=== PATIENT | male | born 1990 | race Caucasian/White ===

== ENCOUNTER 2016-10-25 00:59 | Emergency (ER) | payer OTHER ==
[~2016-10-25] VITALS: Ht 177.8 cm; Wt 158.8 kg
[~2016-10-25 00:59] MED LIST: HYDR-971 PO
[2016-10-25] MEDS ORDERED: IV NORMAL SALINE 1000ML BAG 1,000 ML IV SCH (01:30)
--- NOTE | 2016-10-25 01:37 | ED.ADGEN ---
Past Medical History Past Medical History: Asthma Past Surgical History: No Surgical History Alcohol Use: Occasionally Drug Use: None Adult General Chief Complaint Chief Complaint: ABDOMINAL PAIN HPI HPI Patient is a 26 year old man, history of asthma, obesity, who presents to the emergency department with a complaint of left upper abdominal pain/left lower chest pain, that he states occurred approximate hour prior to arrival. Patient states she's been experiencing cold flulike symptoms for the past several days, completed with rhinorrhea, and cough. States he has been taking cough syrup every 4 hours, along with Mucinex, states his cough was better tonight, but he woke up while he was stressed out along some pillows in bed, and experienced 3 "spasm" type feelings, along his left lower rib/upper abdominal region, each lasted for a few seconds, states he took deep breaths, and the symptoms resolved. Patient has not taken any medications that time, he states that he went online and check that his symptoms was concerned he might be having a heart attack. He denies any upper chest pain, any shortness of breath, any nausea or vomiting, states that he was feeling hot at home, noted to have a temperature of 99.5 in the ED. Patient also noted a mildly tachycardic, heart rate in the 90s to low 100s, blood pressure is elevated, 160s over 100, he states he has history of "borderline hypertension". It experiencing no symptoms at this time. No family history of sudden cardiac or cardiac issues or CVA in young persons. No recent travel or surgery, no history of DVT or PE. Denies any drugs alcohol or cigarettes. He is not taken any other medications aside from the cough syrup that he took around 12:00 at night. Review of Systems Review of Systems Constitutional: Denies fever or chills. [] Eyes: Denies change in visual acuity. [] HENT: Denies nasal congestion or sore throat. [] Respiratory: Denies cough or shortness of breath. [] Cardiovascular: Left lower chest/upper abdominal spasm. GI: Denies abdominal pain, nausea, vomiting, bloody stools or diarrhea. [] : Denies dysuria. [] Musculoskeletal: Denies back pain or joint pain. [] Integument: Denies rash. [] Neurologic: Denies headache, focal weakness or sensory changes. [] Endocrine: Denies polyuria or polydipsia. [] Lymphatic: Denies swollen glands. [] Psychiatric: Denies depression or anxiety. [] Current Medications Current Medications Current Medications Medications (Trade) Dose Ordered Sig/Elissa Start Time Stop Time Status Last Admin Dose Admin Naproxen (Naprosyn) 250 mg 1X ONCE 10/25/16 01:45 10/25/16 01:46 DC 10/25/16 01:48 250 MG Sodium Chloride (Iv Sodium Chloride 0.9% 1000ml Bag) 1,000 ml @ 1,000 mls/hr Q1H 10/25/16 01:30 10/25/16 02:29 DC 10/25/16 01:49 1,000 MLS/HR Allergies Allergies Allergies Coded Allergies Type Severity Reaction Last Updated Verified Sulfa (Sulfonamide Antibiotics) Allergy Unknown 10/25/16 Yes cefaclor Allergy Unknown 10/25/16 Yes Physical Exam Physical Exam Constitutional: Well developed, obese, slightly flushed, no acute distress, non- toxic appearance. [] HENT: Normocephalic, atraumatic, bilateral external ears normal, oropharynx moist, no oral exudates, nose normal. [] Eyes: PERRLA, EOMI, conjunctiva normal, no discharge. [] Neck: Normal range of motion, no tenderness, supple, no stridor. [] Cardiovascular:Heart rate regular rhythm, no murmur, S1, S2, no rubs or gallops. No chest wall tenderness or crepitus. Patient points location below his left anterior chest region as the area of discomfort, unable to reproduce symptoms palpation at this time. [] Lungs & Thorax: Bilateral breath sounds clear to auscultation, no wheezing, rhonchi, rales. No chest wall crepitus or tenderness. [] Abdomen: Bowel sounds normal, soft, obese, no tenderness, no masses, no pulsatile masses. [] Skin: Warm, dry, no erythema, no rash. [] Back: No tenderness, no CVA tenderness. [] Extremities: No tenderness, no cyanosis, no clubbing, ROM intact, no edema. Negative Homans sign.] Neurologic: Alert and oriented X 3, normal motor function, normal sensory function, no focal deficits noted. [] Psychologic: Affect normal, judgement normal, mood normal. [] Current Patient Data Vital Signs Vital Signs Date Time Temp Pulse Resp B/P Pulse Ox O2 Delivery O2 Flow Rate FiO2 10/25/16 03:00 98.1 83 20 127/64 97 Room Air 98.1 Lab Values Laboratory Tests Test 10/25/16 01:33 Influenza Type A Antigen Negative (NEGATIVE) Influenza Type B Antigen Negative (NEGATIVE) EKG EKG EC: Sinus rhythm heart rate 99 beats minute, upright axis, QTC of 413, [place] 140, QRS of 98, no ST elevations or depressions identified, no evidence of acute ST abnormalities. No prior for comparison. As interpreted by me. Radiology/Procedures Radiology/Procedures Chest x-ray: Two-view: Normal cardiopulmonary silhouette, no infiltrates, no pneumothorax, no effusions, no soft tissue or bony abnormalities identified. As interpreted by me. [] Course & Med Decision Making Course & Med Decision Making Pertinent Labs and Imaging studies reviewed. (See chart for details) Patient well-appearing, asymptomatic in the ED, his description of symptoms sounds much more like a muscular spasm, which is occurring actually below the chest region primarily, then of any involvement of the cardiac pulmonary system. ECG is unremarkable, patient was mildly tachycardic on arrival, noted to have a temperature of 99.5 orally, along with nasal congestion, and cough, examination and history is consistent with a viral respiratory infection. Chest x-rays unremarkable, oxygen saturation is 97-100% on room air, respirations unlabored, patient received naproxen in the ED, bloody fluids, repeat heart rate , examination is improved, he denies any new or concerning symptoms. No concerning history identified. I did discuss with patient the fact that he may be overdoing the dextromethorphan containing medications, which may be causing some tachycardia as well, discussed use of Tessalon Perles which she has used previously with good effect, patient given a prescription from the ED. Patient given clear and detailed return instructions, instructed also to establish follow up with a primary care provider, which he states he will be able to do, for recheck of his blood pressure, initially was high in the ED, improved, but will require additional follow-up. Patient voiced understanding and agreement, discharged home in stable condition with his family. Dragon Disclaimer Dragon Disclaimer This electronic medical record was generated, in whole or in part, using a voice recognition dictation system. Departure Impression: Primary Impression: Viral respiratory illness Disposition: HOME, SELF-CARE Condition: IMPROVED Scripts Benzonatate (Tessalon Perle)100 Mg Capsule1 Cap PO TID PRN COUGH #21 CAP Prov:DAVID LIMA DO 10/25/16 Naproxen 250 Mg Pammhx451 Mg PO BID PRN PAIN #10 Prov:DAVID LIMA DO 10/25/16 DAVID LIMA DO Oct 25, 2016 01:37
[2016-10-25] MEDS ORDERED: NAPROXEN 250 MG TABLET PO ONE (01:45)
[2016-10-25 01:59] LABS: OBC FLU VALID
[2016-10-25 03:00] VITALS: BP 127/64
[2016-10-25] MEDS ORDERED: BENZ100C PO (03:04)
[2016-10-25] MEDS ORDERED: NAPR250T2 PO (03:04)
--- NOTE | 2016-10-25 06:36 | EKG ---
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
--- NOTE | 2016-10-25 07:26 | RAD ---
Indication: Left chest pain. Time of exam 0134 hours. FINDINGS: The heart size is normal. The lungs are clear. No pleural effusion or pneumothorax is identified. The pulmonary vascularity is normal. IMPRESSION: No acute abnormality detected.
== END 2016-10-25 03:26 | disposition home or self-care (01) ==
LOC: ER 00:59
DX: J98.9 Respiratory disorder, unspecified (principal); B34.9 Viral infection, unspecified; R10.12 Left upper quadrant pain; J45.909 Unspecified asthma, uncomplicated; E66.9 Obesity, unspecified; Z88.2 Allergy status to sulfonamides; Z88.8 Allergy status to other drugs, medicaments and biological substances
CPT/HCPCS: 71020; 87804; 93005; 96360; 99285; J7030

== ENCOUNTER 2017-07-04 16:37 | Emergency (ER) | payer OTHER ==
[~2017-07-04] VITALS: Ht 236.2 cm; Wt 167.8 kg
[~2017-07-04 16:37] MED LIST changes: +BENZ100C PO; +NAPR250T6 PO
[2017-07-04 17:46] LABS: BASO # 0.1 x10^3/uL (0.0-0.2); BASO % 1 % (0-3); EOS % 3 % (0-3); HEMATOCRIT 42.7 % (39.0-53.0); HEMOGLOBIN 14.4 g/dL (13.0-17.5); LYMPH # 2.2 x10^3/uL (1.0-4.8); LYMPH % 26 % (24-48); MEAN CORPUSCULAR HEMOGLOBIN 29 pg (25-35); MEAN CORPUSCULAR HGB CONC 34 g/dL (31-37); MEAN CORPUSCULAR VOLUME 85 fL (79-100); MONO % 9 % (0-9); NEUT % 62 % (31-73); PLATELET COUNT 237 x10^3/uL (140-400); RED BLOOD COUNT 5.03 x10^6/uL (4.30-5.70); RED CELL DISTRIBUTION WIDTH 13.5 % (11.5-14.5); WHITE BLOOD COUNT 8.5 x10^3/uL (4.0-11.0)
[2017-07-04 18:05] LABS: ALBUMIN 3.7 g/dL (3.4-5.0); ALBUMIN/GLOBULIN RATIO 0.9 (1.0-1.7); CALCIUM 9.4 mg/dL (8.5-10.1); CREATININE 0.9 mg/dL (0.7-1.3); GFR 99.8; POTASSIUM 4.1 mmol/L (3.5-5.1); TOTAL BILIRUBIN 0.5 mg/dL (0.2-1.0); TOTAL PROTEIN 7.9 g/dL (6.4-8.2)
[2017-07-04 18:07] LABS: BILIRUBIN,URINE NEGATIVE (NEG); GLUCOSE,URINE NEGATIVE (NEG); NITRITE,URINE NEGATIVE (NEG); PROTEIN,URINE NEGATIVE (NEG-TRACE); UROBILINOGEN,URINE 0.2 mg/dL (0.2 mg/dL)
[2017-07-04 18:29] LABS: BACTERIA,URINE 0 /HPF (0-FEW); RBC,URINE RARE /HPF (0-2); SQUAMOUS EPITHELIAL CELL,UR OCC /LPF; WBC,URINE OCC /HPF (0-4)
--- NOTE | 2017-07-04 18:34 | EKG ---
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
[2017-07-04 19:12] LABS: BARBITURATES NEG (NEG); BENZODIAZEPINES NEG (NEG); CANNABINOIDS NEG (NEG); COCAINE NEG (NEG); METHADONE NEG (NEG); OPIATES NEG (NEG); PHENCYCLIDINE NEG (NEG)
[2017-07-04 20:30] VITALS: BP 171/97
--- NOTE | 2017-07-04 23:39 | ED.ADGEN ---
Past Medical History Past Medical History: Asthma Past Surgical History: No Surgical History Alcohol Use: Heavy Drug Use: None Adult General Chief Complaint Chief Complaint: CHEST PAIN HPI HPI Patient is a 27 year old man, history of obesity, who presents to the emergency department with a complaint of left-sided chest pain. Patient states that he "stretched", and felt a sharp pain in his left chest, consider lasted for a few minutes, and patient stated he did experience some lightheadedness when this pain developed. He denies any shortness of breath, nausea vomiting, any focal weakness, numbness, tingling, states that the pain lasted for approximately 15 minutes and was fully resolved. This occurred more than hour prior to arrival in the ED. Patient hasn't have recurrence of symptoms since this time, although he states he has had occasional similar symptoms previously. States he is evaluated for similar symptoms when he was concerned that "I might be having a heart attack", several years ago and was told that it was due to a pulled muscle. Patient states he is also discern his blood pressure , patient noted be hypertensive, 195/102 upon arousing the emergency department. Patient has a family history of heart disease, diabetes, obesity, hypertension, with CAD and his mother, grandmother, and grandfather. Per mother' s report is at bedside, patient's grandfather experienced a stroke at age 46, and onset of heart disease at this age as well. No history in the family of heart disease in people of the patient's age, no history of DVT or PE in himself or family members. No recent travel or surgery, patient is asymptomatic at this time. Repeat blood pressure is 170s over 90s. Heart rate remains in the 80s. Review of Systems Review of Systems Constitutional: Denies fever or chills. [] Eyes: Denies change in visual acuity. [] HENT: Denies nasal congestion or sore throat. [] Respiratory: Denies cough or shortness of breath. [] Cardiovascular: Left-sided chest pain, no edema. Lightheadedness. GI: Denies abdominal pain, nausea, vomiting, bloody stools or diarrhea. [] : Denies dysuria. [] Musculoskeletal: Denies back pain or joint pain. [] Integument: Denies rash. [] Neurologic: Denies headache, focal weakness or sensory changes. [] Endocrine: Denies polyuria or polydipsia. [] Lymphatic: Denies swollen glands. [] Psychiatric: Denies depression or anxiety. [] Allergies Allergies Allergies Coded Allergies Type Severity Reaction Last Updated Verified Sulfa (Sulfonamide Antibiotics) Allergy Unknown 10/25/16 Yes cefaclor Allergy Unknown 10/25/16 Yes Physical Exam Physical Exam Constitutional: Well developed, well nourished, no acute distress, non-toxic appearance. [] HENT: Normocephalic, atraumatic, bilateral external ears normal, oropharynx moist, no oral exudates, nose normal. [] Eyes: PERRLA, EOMI, conjunctiva normal, no discharge. [] Neck: Normal range of motion, no tenderness, supple, no stridor. [] Cardiovascular:Heart rate regular rhythm, no murmur, S1, S2, rubs or gallops. [] Lungs & Thorax: Bilateral breath sounds clear to auscultation , no wheezing, rhonchi, rales. No chest wall crepitus. No reveals will tenderness at this time. [] Abdomen: Bowel sounds normal, soft, obese, no rebound, rigidity, no guarding, no tenderness, no masses, no pulsatile masses. [] Skin: Warm, dry, no erythema, no rash. [] Back: No tenderness, no CVA tenderness. [] Extremities: No tenderness, no cyanosis, no clubbing, ROM intact, no edema. Negative Homans sign.[] Neurologic: Alert and oriented X 3, normal motor function, normal sensory function, no focal deficits noted. [] Psychologic: Affect normal, judgement normal, mood normal. [] Current Patient Data Vital Signs Vital Signs Date Time Temp Pulse Resp B/P (MAP) Pulse Ox O2 Delivery O2 Flow Rate FiO2 07/04/17 20:30 96 18 171/97 (121) 100 Room Air 07/04/17 17:08 98.2 98.2 Lab Values Laboratory Tests Test 07/04/17 17:30 07/04/17 17:50 07/04/17 17:56 07/04/17 20:11 White Blood Count 8.5 x10^3/uL (4.0-11.0) Red Blood Count 5.03 x10^6/uL (4.30-5.70) Hemoglobin 14.4 g/dL (13.0-17.5) Hematocrit 42.7 % (39.0-53.0) Mean Corpuscular Volume 85 fL (79-100) Mean Corpuscular Hemoglobin 29 pg (25-35) Mean Corpuscular Hemoglobin Concent 34 g/dL (31-37) Red Cell Distribution Width 13.5 % (11.5-14.5) Platelet Count 237 x10^3/uL (140-400) Neutrophils (%) (Auto) 62 % (31-73) Lymphocytes (%) (Auto) 26 % (24-48) Monocytes (%) (Auto) 9 % (0-9) Eosinophils (%) (Auto) 3 % (0-3) Basophils (%) (Auto) 1 % (0-3) Neutrophils # (Auto) 5.3 x10^3uL (1.8-7.7) Lymphocytes # (Auto) 2.2 x10^3/uL (1.0-4.8) Monocytes # (Auto) 0.7 x10^3/uL (0.0-1.1) Eosinophils # (Auto) 0.2 x10^3/uL (0.0-0.7) Basophils # (Auto) 0.1 x10^3/uL (0.0-0.2) Sodium Level 139 mmol/L (136-145) Potassium Level 4.1 mmol/L (3.5-5.1) Chloride Level 100 mmol/L (98-107) Carbon Dioxide Level 30 mmol/L (21-32) Anion Gap 9 (6-14) Blood Urea Nitrogen 10 mg/dL (8-26) Creatinine 0.9 mg/dL (0.7-1.3) Estimated GFR (Cockcroft-Gault) 99.8 BUN/Creatinine Ratio 11 (6-20) Glucose Level 107 mg/dL (70-99) H Calcium Level 9.4 mg/dL (8.5-10.1) Total Bilirubin 0.5 mg/dL (0.2-1.0) Aspartate Amino Transferase (AST) 35 U/L (15-37) Alanine Aminotransferase (ALT) 61 U/L (16-63) Alkaline Phosphatase 81 U/L (46-116) Troponin I Quantitative < 0.017 ng/mL (0.000-0.055) VJ-Xxq-P-Type Natriuretic Peptide 8 pg/mL (0-124) Total Protein 7.9 g/dL (6.4-8.2) Albumin 3.7 g/dL (3.4-5.0) Albumin/Globulin Ratio 0.9 (1.0-1.7) L Lipase 166 U/L (73-393) Urine Color Yellow Urine Clarity Clear Urine pH 7.0 Urine Specific [place] 1.020 Urine Protein Negative mg/dL (NEG-TRACE) Urine Glucose (UA) Negative mg/dL (NEG) Urine Ketones (Stick) Negative mg/dL (NEG) Urine Blood Negative (NEG) Urine Nitrite Negative (NEG) Urine Bilirubin Negative (NEG) Urine Urobilinogen Dipstick 0.2 mg/dL (0.2 mg/dL) Urine Leukocyte Esterase Negative (NEG) Urine RBC Rare /HPF (0-2) Urine WBC Occ /HPF (0-4) Urine Squamous Epithelial Cells Occ /LPF Urine Bacteria 0 /HPF (0-FEW) Urine Mucus Slight /LPF Urine Opiates Screen Neg (NEG) Urine Methadone Screen Neg (NEG) Urine Barbiturates Neg (NEG) Urine Phencyclidine Screen Neg (NEG) Urine Amphetamine/Methamphetamine Neg (NEG) Urine Benzodiazepines Screen Neg (NEG) Urine Cocaine Screen Neg (NEG) Urine Cannabinoids Screen Neg (NEG) Urine Ethyl Alcohol Neg (NEG) POC Troponin I 0.01 ng/ml (<0.08) Laboratory Tests 07/04/17 17:30 Laboratory Tests 07/04/17 17:30 EKG EKG ECG:[] 1659: Sinus rhythm, heart rate 94 beats are minute, upright axis, QTC of 420, NE 152, QRS of 96, patient with mild baseline artifact noted, incomplete right bundle-branch block noted, no ST elevations or depressions, contour normality is noted as stated. Does not meet STEMI criteria. As interpreted by me. Radiology/Procedures Radiology/Procedures Chest x-ray: PA and lateral: Suboptimal inspiratory effort, normal cardiac silhouette, no infiltrates, no effusions, no pneumothorax, no soft tissue or bony abnormalities identified. As interpreted by me.[] Course & Med Decision Making Course & Med Decision Making Pertinent Labs and Imaging studies reviewed. (See chart for details) Patient asymptomatic in the emergency department, is several hours out from onset of symptoms, which lasted for 15 minutes without recurrent. Patient is PERC negative, noted be hypertensive as stated, does not have a history of hypertension is not taking any medications regular basis. Laboratory studies, chest x-ray and ECG ordered, ECG shows incomplete right bundle-branch block, with no other concerning findings identified. Chest x-rays unremarkable, patient 's initial troponins and laboratory studies not reveal a concerning findings. On reevaluation patient remains asymptomatic. Blood pressure is improved although does remain elevated. Repeat 3 or troponin obtained, was also negative. I did discuss the cart score with patient and family at bedside, patient is a score of 1-2, remains asymptomatic, with 2 negative troponins in the ED 3 hours apart, patient states that he is rated be discharged home, is agreeable to plan to follow-up with a primary care provider, which he states he does have an Mobile to follow-up promptly, also given contact information for Dr. Rothman of cardiology for additional evaluation as needed and as desired. We did discuss concerning symptoms that prompt return to the emergency department for immediate reevaluation, patient and family at bedside voice understanding and agreement. Patient ambulated in the ED without issue. I also discussed utility of initiating and a hypertensive medication the ED, versus follow-up with primary care provider, patient states that as he'll be older follow-up promptly, he will follow-up and be started on an agent at that time if needed. Patient discharged home with family in stable condition with plan and precautions as above. Dragon Disclaimer Dragon Disclaimer This electronic medical record was generated, in whole or in part, using a voice recognition dictation system. Departure Impression: Primary Impression: Chest pain Disposition: HOME, SELF-CARE Condition: IMPROVED DAVID LIMA DO Jul 04, 2017 23:39
--- NOTE | 2017-07-05 08:00 | RAD ---
CHEST PA LATERAL Clinical Indication: CP Comparison: Chest radiograph dated 10/25/2016 Findings: Partial exclusion of the posterior costophrenic angles. Normal lung volume. No focal consolidation. Stable pulmonary vasculature. No pleural effusion or pneumothorax. The cardiomediastinal silhouette and great vessels are normal. No acute osseous abnormality. IMPRESSION: No acute cardiopulmonary process.
== END 2017-07-04 21:23 | disposition home or self-care (01) ==
LOC: ER 16:37
DX: R07.89 Other chest pain (principal); J45.909 Unspecified asthma, uncomplicated; F10.20 Alcohol dependence, uncomplicated; Z88.2 Allergy status to sulfonamides; Z88.8 Allergy status to other drugs, medicaments and biological substances; Z79.899 Other long term (current) drug therapy
CPT/HCPCS: 36415; 71020; 80053; 80307; 81001; 83690; 83880; 84484; 85025; 93005; 99285-25; G0479